=== PATIENT | male | born 2000 | race African-American/Black ===

== ENCOUNTER 2018-07-27 16:51 | Emergency (ER) | payer OTHER ==
[2018-07-27 17:12] VITALS: BP 133/75; PULSE 88; TEMP 98.3; BMI 25.9
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
[2018-07-27] MEDS ORDERED: NAPROXEN 500 MG TABLET (FP) PO ONE (17:50)
[2018-07-27] MEDS ORDERED: CYCLOBENZAPRINE HCL 10 MG TABLET (FP) PO ONE (17:58)
[2018-07-27] MEDS ORDERED: CYCLOBENZAPRINE HCL 10 MG TABLET (FP) ONE (17:58)
[2018-07-27] MEDS ORDERED: NAPROXEN 500 MG TABLET (FP) ONE (17:58)
[2018-07-27] MEDS ORDERED: KETOROLAC TROMETHAMINE 60 MG/2 ML VIAL IM ONE (18:54)
[2018-07-27] MEDS ORDERED: KETOROLAC TROMETHAMINE 60 MG/2 ML VIAL ONE (19:02)
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
[2018-07-27] MEDS ORDERED: CYCLOBENZAPRINE HCL 5 MG TABLET PO SCH (22:00)
== END 2018-07-27 19:54 | disposition home or self-care (01) ==
LOC: FER 16:51
CPT/HCPCS: 99282-25